=== PATIENT | female | born 1990 | race Two or more races ===

== ENCOUNTER 2019-09-15 08:35 | Inpatient (IN) | payer OTHER ==
--- NOTE | 2019-09-15 09:08 | HP ---
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: Alzheimer's, CVA, Dementia, Migraine, Multiple Sclerosis, Peripheral Neuropathy, Parkinson's, Seizure, Syncope, TIA, Vertigo, Other Cardiovascular: No: AFIB, Aneurysm, Aortic Insufficiency, Aortic Stenosis, CAD, CHF, Deep Vein Thrombosis, HTN, Hyperlipdemia, RI, Mitral Insufficiency, Mitral Stenosis, Murmur, Pulmonary Hypertension, Other Pulmonary: No: Asthma, Bronchitis, Cancer, COPD, O2 Dependent, Pneumonia, Previously Intubated, Pulmonary Embolus, Pulmonary Fibrosis, Sleep Apnea, Other Gastrointestinal: No: Ascites, Cancer, Constipation, Crohn's Disease, Diverticulitis, Diverticulosis, Esophageal Varices, Gastritis, GERD, GI Bleed, Hemorrhoids, Hiatal Hernia, Inflamatory Bowel Disease, Irritable Bowel Disease, Pancreatitis, Peptic Ulcer Disease, Ulcerative Colitis, Other Hepatobiliary: No: Cirrhosis, Cholelithiasis, Cholecystitis, Choledocholithiasis , Hepatitis A, Hepatitis B, Hepatitis C, Other Renal/: No: Renal Failure, Renal Inusuff, BPH, Cancer, Hematuria, Hemodialysis , Neurogenic Bladder, Renal Calculi, UTI, Other Reproductive: No: Ectopic , Endometriosis, Fibroids, PID, Polycystic Ovary Syndrome, Postmenopausal, Other Heme/Onc: No: Anemia, B12 Deficiency, Bleeding Disorder, Cancer, Current Chemotherapy, Current Radiation Therapy, Hemochromatosis, Hypercoaguable State, Myeloproliferative Synd, Sickle Cell Disease, Sickle Cell Trait, Thrombocytopenia, Other Infectious Disease: Yes: Other (hsv +) Psych: No: Addictions, Anxiety, Bipolar, Depression, Panic, Psychosis, Schizophrenia, Other Musculoskeletal: No: Bursitis, Chronic low back pain, Hemiparesis, Hemiplegia, Osteoarthritis, Paraplegia, Other Rheumatology: No: Fibromyalgia, Gout, Lupus, Rheumatoid Arthritis, Sarcoidosis, Vasculitis, Other ENT: No: Allergic Rhinitis, Sinusitis, Other Endocrine: No: Santiago's Disease, [place]'s Disease, Diabetes Insipidus, Diabetes Mellitus, Hyperparathyroidism, Hyperthyroidism, Hypothyroidism, Osteopenia, SIADH, Other Dermatology: No: Basal Cell, Cellulitis, Eczema, Melanoma, Psoriasis, Squamous Cell, Other - Past Surgical History Past Surgical History: No: None, AAA Repair, AICD, Amputation, Appendectomy, Arthrosocopy, AV Fistula/Graft, Bariatric Surgery, Breast Biopsy, Bypass, CABG, Carotid Endarterectomy, Cataract Removal, Cholecystectomy, Colectomy, Colonoscopy, Colostomy, Craniotomy, , Cystectomy, Hernia Repair, Hysterectomy, Ileal Conduit, Ileosotomy, Joint Replacement, Kidney Transplant, Laminectomy, Liver Transplant, Mastectomy, Nephrectomy, Oopherectomy, Orchiectomy, Permanent Pacemaker, Prostatectomy, Splenectomy, Stent, Thoracotomy , TURP, Tonsillectomy, Tubal Ligation, Upper Endoscopy, Valve Replacement, Vasectomy, Vein Stripping/Ligation Hx Myomectomy: No Hx Transabdominal Cerclage: No - Smoking History Smoking history: Never smoked - Alcohol/Substance Use Hx Alcohol Use: Yes (occasion) - Social History History of Recent Travel: No Home Medications - Allergies Allergies/Adverse Reactions: Allergies Allergy/AdvReac Type Severity Reaction Status Date / Time No Known Allergies Allergy Verified 08/22/15 19:55 - Home Medications Home Medications: Ambulatory Orders Acyclovir [Zovirax -] 400 mg PO Q8H #30 tablet 08/22/15 Family Medical History Family History: Unremarkable Review of Systems - Review of Systems Constitutional: reports: No Symptoms Eyes: reports: No Symptoms HENT: reports: No Symptoms Neck: reports: No Symptoms Cardiovascular: reports: No Symptoms Respiratory: reports: No Symptoms Gastrointestinal: reports: No Symptoms Genitourinary: reports: No Symptoms Breasts: reports: No Symptoms Reported Musculoskeletal: reports: No Symptoms Integumentary: reports: No Symptoms Neurological: reports: No Symptoms Endocrine: reports: No Symptoms Hematology/Lymphatic: reports: No Symptoms Psychiatric: reports: No Symptoms Physical Exam - Maternity Vital Signs: as documented Constitutional: Yes: Well Nourished HENT: Yes: Atraumatic Neck: Yes: Supple Cardiovascular: Yes: Regular Rate and Rhythm Breast(s): Yes: Other - Abdominal Exam/OB Number of Fetuses: Single Presentation: Vertex Contractions: No Regularity: Irritability Intensity: Unaware Monitor Mode: External Heart Rate (range): 115 Category: I Accelerations: None Decelerations: None - Vaginal Exam/OB Vaginal Bleediing: No Speculum Exam: Yes (no lessions, no abnormal discharge. Folliculitis noterd) Dilatation (cm): 0.5 Effacement (%): 0 Presentation: Vertex/Position Station: -3 (cervidil in vaginal vault) - Physical Exam Musculoskeletal: Yes: WNL Extremities: Yes: WNL Edema: Yes Edema: LLE: Trace, RLE: Trace Integumentary: Yes: WNL Deep Tendon Reflex Grade: Normal +2 ...Motor Strength: WNL Psychiatric: Yes: Alert, Oriented Imaging - Results Ultrasound: Report Reviewed Assessment/Plan 28 y/o G1 @ 41.1wks presenting for scheduled induction. Risks and complications of induction of labor including but not limited to prolonged process, SD, and increased risk of CD reiterated. All questions answered and informed consent obtained and cervidil placed.
[2019-09-15] MEDS: DEXTROSE 5%-LACTATED RINGERS 1,000 ML IV SCH (09:40)
[2019-09-15 10:17] VITALS: BMI 36.2
[2019-09-15 10:32] LABS: BASO % 0.2 % (0-2.0); EOS % 0.9 % (0-4.5); HEMATOCRIT 33.9 % (32.4-45.2); HEMOGLOBIN 11.7 GM/dL (10.7-15.3); LYMPH % 15.1 % (8-40); MCH 30.8 pg (25.7-33.7); MCHC 34.5 g/dl (32.0-36.0); MEAN CELL VOLUME 89.1 fl (80-96); MEAN PLT VOLUME 8.6 fl (7.5-11.1); MONO % 5.7 % (3.8-10.2); NEUT % 78.1 % (42.8-82.8); PLATELET COUNT 196 K/MM3 (134-434); RDW 13.4 % (11.6-15.6)
[2019-09-15 10:41] LABS: INR 0.94 (0.83-1.09); PROTHROMBIN TIME (PATIENT) 11.1 SEC (9.7-13.0)
[2019-09-15 10:44] LABS: ACTIVATED PTT 29.1 SECONDS (25.2-36.5)
[2019-09-15 10:54] LABS: BLOOD UREA NITROGEN 12.7 mg/dL (7-18); CALCIUM 8.8 mg/dL (8.5-10.1); CREATININE 0.8 mg/dL (0.55-1.3); POTASSIUM 3.3 mmol/L (3.5-5.1)
[2019-09-15] MEDS ORDERED: DINOPROSTONE 10 MG VAGINAL SUPPOSITORY VG ONE ×2 (12:19→21:54)
[2019-09-15 12:37] LABS: COCAINE, UR NEGATIVE ng/ml (CUTOFF=300); METHADONE, UR NEGATIVE ng/ml (CUTOFF=300); OPIATES, URI NEGATIVE ng/ml (CUTOFF=300); PHENCYCLIDINE,URINE NEGATIVE ng/ml (CUTOFF=25); URINE AMPHETAMINES NEGATIVE ng/ml (CUTOFF=500); URINE BARBITURATES NEGATIVE ng/ml (CUTOFF=200); URINE BENZODIAZEPINES NEGATIVE ng/ml (CUTOFF=200)
--- NOTE | 2019-09-15 21:54 | PN ---
Ante-Partal Exam - Subjective Subjective: Patient evaluated for progression of induction and cervidil removal Vital Signs: Vital Signs Temperature 98.1 F 09/15/19 20:00 Pulse Rate 100 H 09/15/19 20:00 Respiratory Rate 18 09/15/19 20:00 Blood Pressure 110/73 09/15/19 20:00 O2 Sat by Pulse Oximetry (%) Bleeding: No Headache: No Visual changes: No Right upper quadrant pain: No - Contractions Contractions: No Regularity: Irritability Intensity: Unaware Monitor Mode: External - Exam during Labor Heart Rate: 110 Variability: Moderate Category: I Monitor Accelerations: Present Monitor Decelerations: None Exam: Vaginal Dilatation (cm): 0.5 Effacement (%): 30 Amniotic Membrane Status: Intact Station: -3 (cervidil removed and new one placed in vaginal vault) Remarks: cervix is posterior - Assessment/Plan Assessment/Plan: 28 y/o G1 @ 41.1 wks, induction of labor due to late term, reassuring FHT and stable maternal condition. Patient is comfortable S/P cervidil # 1 and cervidil # [address] -Continue with induction of labor
[2019-09-16] MEDS: DEXTROSE 5%-LACTATED RINGERS 1,000 ML IV SCH ×2 (03:00→11:21)
[2019-09-16] MEDS ORDERED: OXYTOCIN 30 UNITS in 0.9% NS 30 UNIT/500 ML INFUS.BAG IVPB ONE (09:47)
--- NOTE | 2019-09-16 10:43 | PN ---
Ante-Partal Exam - Subjective Subjective: Patient evaluated for progression of induction. Vital Signs: Vital Signs Temperature 98.1 F 09/16/19 10:00 Pulse Rate 85 09/16/19 10:00 Respiratory Rate 20 09/16/19 10:00 Blood Pressure 126/81 09/16/19 10:00 O2 Sat by Pulse Oximetry (%) Bleeding: No Headache: No Visual changes: No Right upper quadrant pain: No - Contractions Contractions: Yes Regularity: Irregular Intensity: Unaware Monitor Mode: External - Exam during Labor Heart Rate: 120 Variability: Moderate Category: I Monitor Accelerations: Present Monitor Decelerations: None Exam: Vaginal Dilatation (cm): 1 Effacement (%): 40 Amniotic Membrane Status: Intact Presentation: Vertex Station: -3 Remarks: cervidil removed and cervical obrien placed with 60ml of sterile saline - Assessment/Plan Assessment/Plan: 28 y/o G1 @ 41.2wks induction of labor at late term, FHT reassuring, stable maternal conditions, S/P cervidil x 2, Cervical obrien in place. -Initiate pitocin -Re-evaluate accordingly -Continuous monitoring
[2019-09-16] MEDS ORDERED: OXYTOCIN 30 UNITS in 0.9% NS 30 UNIT/500 ML INFUS.BAG IVPB SCH (11:00)
[2019-09-16] MEDS ORDERED: AMPICILLIN SODIUM 2 GM VIAL ONE (16:52)
[2019-09-16] MEDS ORDERED: AMPICILLIN - 2 GM in SODIUM CHLORIDE 100 ML IVPB ONE (17:00)
--- NOTE | 2019-09-16 17:10 | PN ---
Ante-Partal Exam - Subjective Subjective: Patient evaluated progression of induction Vital Signs: Vital Signs Temperature 98.1 F 09/16/19 14:00 Pulse Rate 80 09/16/19 15:45 Respiratory Rate 20 09/16/19 15:45 Blood Pressure 128/74 09/16/19 15:45 O2 Sat by Pulse Oximetry (%) Bleeding: No Headache: No Visual changes: No Right upper quadrant pain: No - Contractions Contractions: Yes Regularity: Regular Intensity: Mild/Mod Monitor Mode: External - Exam during Labor Heart Rate: 110 Variability: Moderate Category: I Monitor Accelerations: Present Monitor Decelerations: None Exam: Vaginal Dilatation (cm): 4 Effacement (%): 60 Amniotic Membrane Status: Ruptured (clear) Presentation: Vertex (asynclitic) Station: -3 Remarks: Cervical balloon removed and AROMed - Assessment/Plan Assessment/Plan: 28 y/o G1 @ 41.2wks, induction of labor at late term, S/P cervidil x 2 and cervical obrien, S/P AROm, on pitocin augmentation, reassuring status -Continue pitocin -Initiate GBS prophylaxis -Re-evaluate according
[2019-09-16] MEDS ORDERED: BUTORPHANOL TARTRATE 1 MG/ML VIAL IVPB ONE (19:58)
--- NOTE | 2019-09-16 20:04 | PN ---
Ante-Partal Exam - Subjective Subjective: Patient evaluated for progression of labor Vital Signs: Vital Signs Temperature 98.3 F 09/16/19 18:00 Pulse Rate 82 09/16/19 19:00 Respiratory Rate 20 09/16/19 19:00 Blood Pressure 128/76 09/16/19 19:00 O2 Sat by Pulse Oximetry (%) Bleeding: No Headache: No Visual changes: No Right upper quadrant pain: No Pain (scale 1-10): 5 - Contractions Contractions: Yes Regularity: Regular Intensity: Mod/Strong Monitor Mode: External - Exam during Labor Heart Rate: 120 Variability: Moderate Category: I Monitor Accelerations: Present Monitor Decelerations: None Exam: Vaginal Dilatation (cm): 4 Effacement (%): 70 Amniotic Membrane Status: Ruptured Station: -2 Remarks: cervix is midline and IUPC placed - Assessment/Plan Assessment/Plan: 28 y/o G1 @ 41.2wks, IOL due to late term, reassuring status, no cervical change despite adequate contractions. Patient counseled regarding management, CD vs IUPC and continuing induction. Risks and complications of each option discussed. Patient desires to proceed with induction and all questions answered. -Continue pitocin augmentation -Re-evaluate accordingly
[2019-09-16] MEDS ORDERED: BUTORPHANOL TARTRATE 1 MG/ML VIAL ONE (20:09)
[2019-09-16] MEDS ORDERED: AMPICILLIN SODIUM 1 GM VIAL ONE (20:17)
[2019-09-16] MEDS: AMPICILLIN - 1 GM in SODIUM CHLORIDE 100 ML IVPB SCH (20:51)
[2019-09-16] MEDS: ELECTROLYTE-148 SOLN 1,000 ML IV SCH (21:00)
[2019-09-16] MEDS ORDERED: OXYTOCIN 20 UNITS in 0.9% NS 20 UNIT/1,000 ML INFUS.BAG IV ONE ×2 (21:21→21:40)
--- NOTE | 2019-09-16 21:26 | PN ---
Ante-Partal Exam - Subjective Subjective: Patient evaluated for progression of labor and recurrent variables Vital Signs: Vital Signs Temperature 98.3 F 09/16/19 20:00 Pulse Rate 67 09/16/19 21:00 Respiratory Rate 20 09/16/19 21:00 Blood Pressure 125/80 09/16/19 21:00 O2 Sat by Pulse Oximetry (%) Bleeding: No Headache: No Visual changes: No Right upper quadrant pain: No - Contractions Contractions: Yes Regularity: Regular Intensity: Moderate Monitor Mode: External - Exam during Labor Heart Rate: 110 Variability: Minimal, Moderate Category: I Monitor Accelerations: Absent Monitor Decelerations: Variable Exam: Vaginal Dilatation (cm): 4.5 Effacement (%): 60 Station: -2 - Assessment/Plan Assessment/Plan: 28 y/o G1 @ 41.2wks, IOL due to late term, failed induction, FHT cat II. Patient counseled regarding CD and all questions answered -stop pitocin -Proceed with CD
[2019-09-16] MEDS ORDERED: morphine SULFATE/PF 0.5 MG/ML (2cc Syringe - QUVA) ONE (21:34)
[2019-09-16] MEDS: OXYTOCIN 20 UNITS in 0.9% NS 20 UNIT/1,000 ML INFUS.BAG IV SCH (22:07)
[2019-09-16] MEDS ORDERED: IBUPROFEN 800 MG/8 ML IJ IVPB PRN (22:30)
--- NOTE | 2019-09-16 22:43 | OP ---
Operative Note - Note: Operative Date: 09/16/19 (Dict # [id number]) Pre-Operative Diagnosis: 28 y/o G1 @ 41.2wks, failed induction, FHT cat II. Operation: PLTCS Findings: see dictation Post-Operative Diagnosis: Same as Pre-op Surgeon: Erick Sam Television Script Writer: Harpreet Lisa Anesthesia: Spinal Estimated Blood Loss (mls): 700 Drains, Volume Out (mls): 100 Fluid Volume Replaced (mls): 1,200 Operative Report Dictated: Yes
[2019-09-16] MEDS ORDERED: ONDANSETRON 4 MG/2 ML VIAL IVPUSH PRN (22:46)
[2019-09-16] MEDS ORDERED: IBUPROFEN 800 MG/8 ML IJ IVPB ONE (23:57)
[2019-09-17] MEDS: OXYTOCIN 20 UNITS in 0.9% NS 20 UNIT/1,000 ML INFUS.BAG IV SCH ×2 (00:26→13:00)
[2019-09-17] MEDS: AMPICILLIN - 1 GM in SODIUM CHLORIDE 100 ML IVPB SCH (04:29)
--- NOTE | 2019-09-17 08:07 | PN ---
Post Progress Note - Subjective Subjective: Patient is doing well, all questions answered and patient declined infant's circumcision Post Day: 1 Type of Delivery: Primary C/S Vital Signs: Vital Signs Temperature 97.7 F 09/17/19 06:27 Pulse Rate 83 09/17/19 06:27 Respiratory Rate 18 09/17/19 06:27 Blood Pressure 91/54 L 09/17/19 06:27 O2 Sat by Pulse Oximetry (%) 100 09/17/19 00:10 Breast Exam: Yes: Other (deferred) Uterus: Yes: Fundus Firm Incision: Yes: Gary intact (dressing removed) Abdomen/GI: Yes: Abdomen soft Lochia, amount: Moderate Extremities: Yes: Calves non-tender Activity: Other (obrien in place) - Labs Labs: CBC WBC 9.0 K/mm3 (4.0-10.0) 09/15/19 10:08 RBC 3.80 M/mm3 (3.60-5.2) 09/15/19 10:08 Hgb 11.7 GM/dL (10.7-15.3) 09/15/19 10:08 Hct 33.9 % (32.4-45.2) 09/15/19 10:08 MCV 89.1 fl (80-96) 09/15/19 10:08 MCH 30.8 pg (25.7-33.7) 09/15/19 10:08 MCHC 34.5 g/dl (32.0-36.0) 09/15/19 10:08 RDW 13.4 % (11.6-15.6) 09/15/19 10:08 Plt Count 196 K/MM3 (134-434) 09/15/19 10:08 MPV 8.6 fl (7.5-11.1) 09/15/19 10:08 Absolute Neuts (auto) 7.0 K/mm3 (1.5-8.0) 09/15/19 10:08 Neutrophils % 78.1 % (42.8-82.8) 09/15/19 10:08 Lymphocytes % 15.1 % (8-40) 09/15/19 10:08 Monocytes % 5.7 % (3.8-10.2) 09/15/19 10:08 Eosinophils % 0.9 % (0-4.5) 09/15/19 10:08 Basophils % 0.2 % (0-2.0) 09/15/19 10:08 Nucleated RBC % 0 % (0-0) 09/15/19 10:08 Assessment/Plan POD # 1 in stable condition and PP/post-op precautions discussed -D/C obrien -encourage ambulation -Anticipate D/C home on POD # 3
[2019-09-17 08:35] LABS: BASO % 0.2 % (0-2.0); HEMATOCRIT 26.9 % (32.4-45.2); HEMOGLOBIN 9.1 GM/dL (10.7-15.3); LYMPH % 10.3 % (8-40); MCH 30.2 pg (25.7-33.7); MCHC 33.9 g/dl (32.0-36.0); MEAN CELL VOLUME 89.1 fl (80-96); MEAN PLT VOLUME 8.8 fl (7.5-11.1); MONO % 6.5 % (3.8-10.2); PLATELET COUNT 157 K/MM3 (134-434); RBC 3.02 M/mm3 (3.60-5.2); RDW 13.5 % (11.6-15.6); WHITE BLOOD COUNT 11.2 K/mm3 (4.0-10.0)
[2019-09-17] MEDS: ACETAMINOPHEN 325 MG TABLET (FP) PO PRN (11:31)
[2019-09-17] MEDS: IBUPROFEN 600 MG TABLET (FP) PO PRN (11:31)
[2019-09-17] MEDS: SIMETHICONE 80 MG TAB.CHEW (FP) PO PRN (11:32)
[2019-09-17] MEDS ORDERED: ELECTROLYTE-148 SOLN 1,000 ML IV SCH (15:15)
--- NOTE | 2019-09-17 15:22 | OP ---
DATE OF OPERATION: 09/16/2019 ATTENDING: Bre Kennedy MD PREOPERATIVE DIAGNOSIS: This is a 28-year-old 1 at 41 and 2 weeks of gestation, prolonged induction, failed induction, heart rate category 2. POSTOPERATIVE DIAGNOSIS: This is a 28-year-old 1 at 41 and 2 weeks of gestation, prolonged induction, failed induction, heart rate category 2. PROCEDURE: Primary low transverse section. SURGEON: Bre Kennedy MD TITLE INVESTIGATOR: FRANCOIS Cardozo ANESTHESIA: Spinal. ESTIMATED BLOOD LOSS: 700. INTRAVENOUS FLUIDS: 1200 mL of crystalloid. URINE OUTPUT: 100 mL of clear urine. COMPLICATIONS: None. FINDINGS: Normal intra-abdominal wall anatomy. Lower uterine segment was not effaced. Large, anterior fibroids, 1 approximately measuring 8 cm and the 2nd one approximately measuring 3 cm and fundal. is in cephalic presentation, not engaged in the pelvis. Clear amniotic fluid. OA, live, viable male infant. DESCRIPTION OF PROCEDURE: The patient was taken to the operating room where anesthesia was found to be adequate. She was then prepped and draped in a normal sterile fashion. Urinary [place] catheter was placed atraumatically. Appropriate time-out took place. Pfannenstiel skin incision was made with a scalpel and carried to the underlying fascia with the Bovie. The fascia was incised in the midline and extended laterally with sharp dissection. The underlying rectus muscles were dissected off bluntly and sharply. The rectus muscles were in the midline, and the peritoneum was entered bluntly. The peritoneal incision was extended laterally. Bladder blade was placed in the lower uterine segment as previously mentioned. Low transverse lower uterine segment transverse incision was made with a scalpel, extended laterally with blunt dissection. Amniotomy revealed clear amniotic fluid. Occult umbilical cord and it was repositioned. was delivered through the surgical incision with mild fundal pressure followed by the rest of the body. Umbilical cord was clamped and cut after delay. Sample for gases and blood obtained. Infant handed off to the NICU staff. Placenta was delivered manually and intact. The uterus was exteriorized through the surgical incision, and the intrauterine cavity was cleared of all clots and debris. The lower uterine segment incision was approximated with 1-0 Polysorb running, locked sutures. Excellent structural reapproximation with 1-layer suture. One additional [id number] stitch of the same suture was required in the midline to control mild oozing. Excellent hemostasis noted. The uterus was internalized to the pelvic cavity, and gutters were cleared of all clots and debris. Inspection of the lower uterine segment incision, bladder dome, and rectus muscle fascial interface was noted to be dry. The fascial incision was approximated with 0 Polysorb running, nonlocked sutures. Excellent structural reapproximation achieved and confirmed by digital palpation by the surgeon. Subcutaneous tissues were copiously irrigated and bleeders neutralized with Bovie cautery. Subcutaneous tissues were reapproximated with 2-0 chromic sutures. Skin incision was reapproximated with surgical ramy. Patient tolerated the procedure well and is going to the recovery room in stable condition. Instrument count was reported as correct x2 by the staff. BRE KENNEDY MD [id number] MTDD
[2019-09-17] MEDS: ELECTROLYTE-148 SOLN 1,000 ML IV SCH (16:25)
[2019-09-17] MEDS ORDERED: BISACODYL 10 MG SUPP.RECT RC PRN (22:30)
[2019-09-18] MEDS: IBUPROFEN 600 MG TABLET (FP) PO PRN ×3 (03:13→22:19)
[2019-09-18] MEDS: SIMETHICONE 80 MG TAB.CHEW (FP) PO PRN ×3 (03:13→22:18)
[2019-09-18] MEDS: ACETAMINOPHEN 325 MG TABLET (FP) PO PRN (03:13)
--- NOTE | 2019-09-18 06:07 | PN ---
Post Progress Note - Subjective Subjective: 28 yo Para 1, status post seen and evaluated. Doing well Post Day: 2 Type of Delivery: Primary C/S Vital Signs: Vital Signs Temperature 98.2 F 09/17/19 21:00 Pulse Rate 104 H 09/17/19 21:00 Respiratory Rate 18 09/17/19 21:00 Blood Pressure 125/68 09/17/19 21:00 O2 Sat by Pulse Oximetry (%) 100 09/17/19 00:10 Breast Exam: Yes: Soft Uterus: Yes: Fundus @ umbilicus Incision: Yes: Dressing dry and intact Abdomen/GI: Yes: Abdomen soft, Tolerating PO Lochia: Yes: Rubra Lochia, amount: Small Extremities: Yes: Calves non-tender Perineum: Yes: Intact Activity: Ambulating - Labs Labs: CBC WBC 11.2 K/mm3 (4.0-10.0) H 09/17/19 07:25 RBC 3.02 M/mm3 (3.60-5.2) L 09/17/19 07:25 Hgb 9.1 GM/dL (10.7-15.3) L 09/17/19 07:25 Hct 26.9 % (32.4-45.2) L D 09/17/19 07:25 MCV 89.1 fl (80-96) 09/17/19 07:25 MCH 30.2 pg (25.7-33.7) 09/17/19 07:25 MCHC 33.9 g/dl (32.0-36.0) 09/17/19 07:25 RDW 13.5 % (11.6-15.6) 09/17/19 07:25 Plt Count 157 K/MM3 (134-434) 09/17/19 07:25 MPV 8.8 fl (7.5-11.1) 09/17/19 07:25 Absolute Neuts (auto) 9.2 K/mm3 (1.5-8.0) H 09/17/19 07:25 Neutrophils % 82.0 % (42.8-82.8) 09/17/19 07:25 Lymphocytes % 10.3 % (8-40) D 09/17/19 07:25 Monocytes % 6.5 % (3.8-10.2) 09/17/19 07:25 Eosinophils % 1.0 % (0-4.5) 09/17/19 07:25 Basophils % 0.2 % (0-2.0) 09/17/19 07:25 Nucleated RBC % 0 % (0-0) 09/17/19 07:25 Problem List - Problems (1) Status post primary low transverse section Problems reviewed: Yes Code(s): Z98.891 - HISTORY OF UTERINE SCAR FROM PREVIOUS SURGERY Assessment/Plan Status post primary Ambulation Analgesia as needed Continue routine post op care
[2019-09-18] MEDS: oxyCODONE HCL 5 MG TABLET PO PRN ×2 (10:55→22:18)
[2019-09-19] MEDS ORDERED: SENNOSIDES/DOCUSATE COMBO (SENNA PLUS) TABLET (UD) PO ONE (05:32)
--- NOTE | 2019-09-19 05:40 | DS ---
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 No: Vomiting ...Rectal Exam: Yes: Deferred Renal/: No: CVA Tenderness - Left, CVA Tenderness - Right ....Post : Yes: Uterus firm, Uterus non-tender, Moderate lochia rubra Breast(s): Yes: WNL (BF , breast soft) Musculoskeletal: Yes: WNL Extremities: Yes: WNL. No: Calf Tenderness Edema: LLE: 1+, RLE: 1+ Integumentary: Yes: Tattoos Wound/Incision: Yes: Clean/Dry, Well Approximated, [place] Intact, Open to air. No: Draining, Reddened, Bleeding, Excoriated Neurological: Yes: WNL, Alert, Oriented ...Motor Strength: WNL Psychiatric: Yes: WNL, Alert, Oriented Labs: CBC, BMP 09/17/19 07:25 09/15/19 10:08 Delivery - Delivery Type of Anesthesia: Spinal Episiotomy/Laceration: None EBL (cc): 700 Delivery, Single - Stages of Labor Date 1st Stage Initiatied: 09/16/19 Time 1st Stage Initiated: 19:00 Date of Delivery: 09/16/19 Time of Delivery: 22:06 Time Placenta Delivered: 22:07 - Condition of Infant Web Press Roll Tender/Carrier Washer Present: No Infant Gender: Male Weight: 8 lb 12 oz Position: OA Total Hours ROM (Hrs/Mins): 5hrs 47min - 1 Minute Total Score: 9 5 Minutes Total Score: 9 - Rudyard Feeding Plan Initial Plan: Exclusive throughout hospitalization Remarks - Remarks Remarks: post c/section #day 3 stab;e post op course uneventful anemia counselled pt instructed to go this week tuesday to the clinic for ramy removal Discharge Summary Problems reviewed: Yes Reason For Visit: INDUCTION OF LABOR Current Active Problems Status post primary low transverse section (Acute) Condition: Stable - Instructions Diet, Activity, Other Instructions: Return to regular diet as tolerated. Return to regular physical activity once cleared by physician. Follow up at health center within a week of discharge. Call health center with any questions or concerns Referrals: Erick Sam MD [Staff Physician] - Disposition: HOME - Home Medications Comprehensive Discharge Medication List: Ambulatory Orders Vitamins (Sjr) - 1 tab PO DAILY 09/15/19 Acetaminophen [Tylenol] 650 mg PO Q6H PRN #30 capsule MDD 5 09/16/19 Ibuprofen 600 mg PO Q6H PRN #30 tablet 09/16/19 Oxycodone HCl 5 mg PO Q6H PRN 3 Days #12 tablet MDD 5 09/16/19 Prescription Drug Monitoring Program (I-STOP) results: I-STOP reviewed and no issues identified
[2019-09-19] MEDS: SIMETHICONE 80 MG TAB.CHEW (FP) PO PRN ×2 (07:40→11:10)
[2019-09-19] MEDS: IBUPROFEN 600 MG TABLET (FP) PO PRN ×2 (07:40→11:10)
[2019-09-19] MEDS: oxyCODONE HCL 5 MG TABLET PO PRN ×2 (07:41→11:11)
[2019-09-19 09:02] LABS: BASO % 0.2 % (0-2.0); EOS % 0.9 % (0-4.5); HEMATOCRIT 23.7 % (32.4-45.2); HEMOGLOBIN 8.1 GM/dL (10.7-15.3); LYMPH % 24.8 % (8-40); MCH 30.8 pg (25.7-33.7); MEAN CELL VOLUME 90.5 fl (80-96); MEAN PLT VOLUME 8.2 fl (7.5-11.1); MONO % 7.3 % (3.8-10.2); NEUT % 66.8 % (42.8-82.8); PLATELET COUNT 150 K/MM3 (134-434); RBC 2.62 M/mm3 (3.60-5.2); RDW 13.7 % (11.6-15.6); WHITE BLOOD COUNT 8.2 K/mm3 (4.0-10.0)
[2019-09-19 09:17] VITALS: BP 133/86; PULSE 92; TEMP 98
--- NOTE | 2019-09-19 19:34 | PATH ---
Surgical Pathology Report Patient Name: JANNY JOHNSON Med. Rec. #: [id number] /Age/Gender: 1990 (Age: 28) / F Account: [id number] Location: [facility] OBS/[employer] OFFICER Taken: 09/15/2019 Received: 09/17/2019 Reported: 09/19/2019 Physicians: Erick Sam MD Specimen(s) Received PLACENTA Clinical History 41.2 weeks, failed induction Final Diagnosis PLACENTA: THIRD TRIMESTER PLACENTA WITH FOCAL INCREASED PIGMENTED MACROPHAGES IN THE CHORIOAMNIONIC MEMBRANES, CONSISTENT WITH MECONIUM STAINING, MILD. TRIVASCULAR CORD. Electronically Signed Zhen Braga M.D. Gross Description The specimen is received fresh labeled placenta and is a 612gram, 20 x18 x 3.1cm. placenta with attached membranes and umbilical cord. The attached membranes are glistening, translucent, and insert marginally. The umbilical cord measures 15 cm. in length and averages 1.5 cm. in diameter. The cord inserts eccentrically, 3 centimeter to the nearest margin. No true knots or strictures are identified. Cut surface of the umbilical cord reveals 3 vessels. Sectioning reveals red-brown, spongy parenchyma. No lesions are identified. Robot Programmer sections are submitted in three cassettes as follows: 1- membrane rolls and umbilical cord; 2-3- full thickness sections of placenta KWS/09/18/2019 sulki/09/18/2019
== END 2019-09-19 17:00 | disposition home or self-care (01) | DRG 540 ==
LOC: JLDR 08:35 → J3W 09-17 01:03
PROVIDERS: ADMIT Student in an Organized Health Care Education/Training Program; ATTEND Student in an Organized Health Care Education/Training Program
PROC: 10D00Z1 Extraction of Products of Conception, Low, Open Approach (ICD-10-PCS; principal; 2019-09-16)
DX: O48.0 Post-term pregnancy (principal); O76 Abnormality in fetal heart rate and rhythm complicating labor and delivery; O61.0 Failed medical induction of labor; O34.13 Maternal care for benign tumor of corpus uteri, third trimester; Z3A.41 41 weeks gestation of pregnancy; Z37.0 Single live birth; D25.9 Leiomyoma of uterus, unspecified
CPT/HCPCS: 36415; 80048; 80307; 85025; 85610; 85730; 86593; 86850; 86900; 86901; 88307-TC

== ENCOUNTER 2019-09-26 16:34 | Emergency (ER) | payer OTHER ==
[2019-09-26 17:10] VITALS: BP 130/70; PULSE 77; TEMP 97.9; BMI 31.9
[2019-09-26] MEDS ORDERED: ACETAMINOPHEN 1000 MG/100 ML VIAL (NON FORMULARY) IVPB ONE (17:10)
[2019-09-26] MEDS ORDERED: SODIUM CHLORIDE 1,000 ML IV STA (17:10)
--- NOTE | 2019-09-26 17:10 | PDOC ---
Rapid Medical Evaluation Chief Complaint: Pain, Acute Time Seen by Provider: 09/26/19 17:07 Medical Evaluation: Allergies Allergy/AdvReac Type Severity Reaction Status Date / Time No Known Allergies Allergy Verified 08/22/15 19:55 09/26/19 17:07 Pt with PMH of appendectomy presents for evaluation of RLQ pain starting 3 days ago. Pt had on the . Taking oxycodone with little relief of symptoms. PROJECT ASSOCIATE: Dr. Leary Exam: tearful, TTP of the RLQ Orders: Labs, urine, IVF Pt to proceed to the ER for further evaluation Discharge Disposition - Diagnosis Abdominal pain Qualifiers: Abdominal location: right lower quadrant Qualified Code(s): R10.31 - Right lower quadrant pain - Referrals - Patient Instructions - Post Discharge Activity
[2019-09-26 18:04] LABS: BASO % 0.3 % (0-2.0); EOS % 0.1 % (0-4.5); HEMATOCRIT 31.6 % (32.4-45.2); HEMOGLOBIN 10.8 GM/dL (10.7-15.3); LYMPH % 16.3 % (8-40); MCH 30.6 pg (25.7-33.7); MCHC 34.1 g/dl (32.0-36.0); MEAN CELL VOLUME 89.6 fl (80-96); MEAN PLT VOLUME 7.5 fl (7.5-11.1); MONO % 4.4 % (3.8-10.2); NEUT % 78.9 % (42.8-82.8); PLATELET COUNT 350 K/MM3 (134-434); RBC 3.53 M/mm3 (3.60-5.2); RDW 13.8 % (11.6-15.6); WHITE BLOOD COUNT 10.3 K/mm3 (4.0-10.0)
[2019-09-26 18:14] LABS: INR 1.05 (0.83-1.09); PROTHROMBIN TIME (PATIENT) 12.4 SEC (9.7-13.0)
[2019-09-26 18:20] LABS: ALBUMIN 3.5 g/dl (3.4-5.0); BILIRUBIN,TOTAL 0.4 mg/dL (0.2-1); BLOOD UREA NITROGEN 7.8 mg/dL (7-18); CREATININE 0.8 mg/dL (0.55-1.3); TOT PROT 7.6 g/dl (6.4-8.2)
[2019-09-26 18:25] LABS: EPI CELLS 6.1 /HPF (0-5/HPF); HYALINE CASTS 3 /lpf (0-8); PH,URINE 6.5 (5.0-8.0); URINE APPEARANCE CLEAR; URINE BACTERIA 218.2 /hpf (NEGATIVE); URINE BILIRUBIN NEGATIVE (NEGATIVE); URINE COLOR YELLOW; URINE GLUCOSE (UA) NEGATIVE (NEGATIVE); URINE KETONE TRACE (NEGATIVE); URINE LEUK ESTERASE TRACE (NEGATIVE); URINE NITRITE NEGATIVE (NEGATIVE); URINE PROTEIN NEGATIVE (NEGATIVE); URINE RBC 7 /hpf (0-4); URINE UROBILINOGEN 0.2 mg/dL (0.2-1.0); URINE WBC 12 /hpf (0-5)
[2019-09-26] MEDS ORDERED: ACETAMINOPHEN INJECTION 100 ML IVPB ONE (18:33)
--- NOTE | 2019-09-26 19:12 | PDOC ---
History of Present Illness - General Chief Complaint: Pain, Acute Stated Complaint: SENT BY DR Odonnell Seen by Provider: 09/26/19 17:07 History Source: Patient Exam Limitations: No Limitations - History of Present Illness Travel History: No Initial Comments: 09/26/19 19:06 HISTORY OF PRESENT ILLNESS: 28-year-old G1, P1 status post 09/16 with remote appendectomy 2005 who presents emergency department for evaluation of right lower quadrant pain over the past 3 days. Patient states she was seen and evaluated by her [employer] who has been given her Tylenol, Motrin and oxycodone with minimal relief of pain. She reports the pain is a sharp sensation to the right lower quadrant which is lateral to the scar. She denies any discharge or drainage from site. She reports minimal vaginal bleeding which is slowly improving since delivery. She denies dysuria, hematuria, nausea, vomiting, diarrhea, rectal bleeding. Patient was seen and evaluated by her [employer]HOU[employer] MECH[employer]IC today who referred patient to the emergency department for imaging. No recent travel or sick contacts. PAST MEDICAL HISTORY: Denies past medical history SURGICAL HISTORY: 09/16/2019, appendectomy 2005 ALLERGIES: No known drug allergies REVIEW OF SYSTEMS General/Constitutional: Denies fever or chills. Denies weakness, weight change. HEENT: Denies change in vision. Denies ear pain or discharge. Denies sore throat. Cardiovascular: Denies chest pain or shortness of breath. Respiratory: Denies cough, wheezing, or hemoptysis. Gastrointestinal: See HPI Genitourinary: Denies dysuria, frequency, or change in urination. Musculoskeletal: Denies joint or muscle swelling or pain. Denies neck or back pain. Skin and breasts: Denies rash or easy bruising. Neurologic: Denies headache, vertigo, loss of consciousness, or loss of sensation. Psychiatric: Denies depression or anxiety. Endocrine: Denies increased thirst. Denies abnormal weight change. Hematologic/Lymphatic: Denies anemia, easy bleeding, or history of blood clots. Allergic/Immunologic: Denies hives or skin allergy. Denies latex allergy. PHYSICAL EXAM General Appearance: Well-appearing, appropriately dressed. No apparent distress , no intoxication. Respiratory/Chest: Lungs CTAB. No shortness of breath, chest tenderness, respiratory distress, accessory muscle use. No crackles, rales, rhonchi, stridor , wheezing, dullness Cardiovascular: RRR. S1, S2. No JVD, murmur, bradycardia, tachycardia. Vascular Pulses: Dorsalis-Pedis (R): 2+, Dorsalis-Pedis (L): 2+ Gastrointestinal/Abdominal: Normal bowel sounds. Abdomen soft, non-distended. No rebound tenderness. No organomegaly, hepatomegaly, splenomegaly. Approximate 3 cm circular palpable mass present to the right lower quadrant lateral to surgical incision. Mass is not pulsatile. Increased tenderness with palpation. Lymphatic: No adenopathy, tenderness. Integumentary: Appropriate color, dry, warm. No cyanosis, erythema, jaundice or rash. Surgical incision present to the suprapubic area which is well approximated and well-healed. No erythema, discharge or drainage is present. No warmth to touch. Past History - Past Medical History Allergies/Adverse Reactions: Allergies Allergy/AdvReac Type Severity Reaction Status Date / Time No Known Allergies Allergy Verified 09/26/19 17:07 Home Medications: Ambulatory Orders Vitamins (Sjr) - 1 tab PO DAILY 09/15/19 Acetaminophen [Tylenol] 650 mg PO Q6H PRN #30 capsule [facility] 5 09/16/19 Ibuprofen 600 mg PO Q6H PRN #30 tablet 09/16/19 Oxycodone HCl 5 mg PO Q6H PRN 3 Days #10 tablet [facility] 5 09/21/19 Cephalexin Monohydrate [Keflex -] 500 mg PO BID #14 capsule 09/26/19 Asthma: Yes Cancer: No Cardiac Disorders: No COPD: No Diabetes: No HTN: No Seizures: No Thyroid Disease: No - Psycho Social/Smoking Cessation Hx Smoking History: Never smoked Hx Alcohol Use: No Drug/Substance Use Hx: No Substance Use Type: None Hx Substance Use Treatment: No *Physical Exam - Vital Signs Last Vital Signs Temp Pulse Resp BP Pulse Ox 97.9 F 77 16 130/70 99 09/26/19 17:07 09/26/19 17:07 09/26/19 17:07 09/26/19 17:07 09/26/19 17:07 ED Treatment Course - LABORATORY CBC & Chemistry Diagram: 09/26/19 17:26 09/26/19 17:26 - ADDITIONAL ORDERS Additional order review: Laboratory Results 09/26/19 09/26/1920 17:26 17:26 17:26 PT with INR 12.40 INR 1.05 Sodium 138 Potassium 4.0 Chloride 105 Carbon Dioxide 27 Anion Gap 7 L BUN 7.8 Creatinine 0.8 Est GFR (CKD-EPI)AfAm 117.93 Est GFR (CKD-EPI)NonAf 101.75 Random Glucose 80 Calcium 9.0 Total Bilirubin 0.4 AST 37 ALT 35 Alkaline Phosphatase 142 H Total Protein 7.6 Albumin 3.5 Lipase 108 Urine Color Yellow Urine Appearance Clear Urine pH 6.5 Ur Specific [place] 1.011 Urine Protein Negative Urine Glucose (UA) Negative Urine Ketones Trace H Urine Blood 3+ H Urine Nitrite Negative Urine Bilirubin Negative Urine Urobilinogen 0.2 Ur Leukocyte Esterase Trace Urine WBC (Auto) 12 Urine RBC (Auto) 7 Urine Casts (Auto) 3 U Epithel Cells (Auto) 6.1 Urine Bacteria (Auto) 218.2 09/26/19 17:26 RBC 3.53 L MCV 89.6 MCHC 34.1 RDW 13.8 MPV 7.5 Neutrophils % 78.9 Lymphocytes % 16.3 D Monocytes % 4.4 Eosinophils % 0.1 D Basophils % 0.3 - RADIOLOGY Radiology Studies Ordered: Category Date Time Status ABDOMEN & PELVIS CT WITH CONTR [CT] Stat CT Scan 09/26/19 19:05 Ordered - Medications Given in the ED: ED Medications Discontinued Medications Generic Name Dose Route Start Last Admin Trade Name Freq PRN Reason Stop Dose Admin Acetaminophen 1,000 mg 09/26/19 17:10 09/26/19 18:49 Ofirmev Injection - IVPB 09/26/19 17:11 1,000 mg ONCE ONE Administration Sodium Chloride 1,000 mls @ 1,000 mls/hr 09/26/19 17:10 09/26/19 18:49 Normal Saline - IV 09/26/19 18:09 1,000 mls/hr ASDIR STA Administration Medical Decision Making - Medical Decision Making 09/26/19 19:11 A/P: 28-year-old woman with right lower quadrant pain for 3 days Firm palpable mass approximately 3 cm in diameter present to the right lower quadrant lateral to incision. Masses not pulsatile Increased tenderness with palpation of the mass remainder of abdominal exam is unremarkable. Differential diagnosis includes but is not limited to-hernia, encapsulated hematoma, intra-abdominal abscess status post , metastatic disease Less likely abscess as there is no erythema or fevers. Orders per [facility] CT of the abdomen and pelvis with IV contrast Reassess 09/26/19 22:18 CAT scan is read by Dr. Xie: Large uterus with no evidence of pelvic fluid collections or acute pathology within the abdomen or pelvis per there is an anterior uterine mass consistent with a leiomyoma. WBC 10.3 without shift present. Chemistries notable for mildly elevated alkaline phosphatase at 142. Urinalysis with trace ketones, 3+ blood, trace leukoesterase, 12 WBCs on high- power field. No evidence of contamination. Blood likely due to state. Given trace leukoesterase with 12 WBCs will treat with Keflex 500 mg twice daily for the next 7 days. Discharge home I discussed the physical exam findings, ancillary test results and final diagnoses with the patient. I answered all of the patient's questions. The patient was satisfied with the care received and felt comfortable with the discharge plan and treatment plan. The patient will call their primary care physician within 24 hours to arrange follow-up and will return to the Emergency Department with any new, persistent or worsening symptoms. Discharge - Discharge Information Problems reviewed: Yes Clinical Impression/Diagnosis: Cystitis Uterine leiomyoma Qualifiers: Uterine leiomyoma location: unspecified location Qualified Code(s): D25.9 - Leiomyoma of uterus, unspecified Condition: Stable Disposition: HOME - Admission No - Additional Discharge Information Prescriptions: Cephalexin Monohydrate [Keflex -] 500 mg PO BID #14 capsule - Follow up/Referral Referrals: Erick Sam MD [Staff Physician] - - Patient Discharge Instructions Additional Instructions: Continue all previously prescribed medications for pain. Take Keflex 500 mg twice a day for the next 7 days. Your CAT scan today showed enlarged uterus with uterine fibroid. It is important that you follow-up with your [employer]IC at your scheduled appointment on 09/28. Return to the emergency department for any new or worsening symptoms. - Post Discharge Activity
== END 2019-09-26 22:57 | disposition home or self-care (01) ==
LOC: JER 16:34
PROC: 3E033NZ Introduction of Analgesics, Hypnotics, Sedatives into Peripheral Vein, Percutaneous Approach (ICD-10-PCS; principal; 2019-09-26)
DX: O90.89 Other complications of the puerperium, not elsewhere classified (principal); O86.22 Infection of bladder following delivery; D25.9 Leiomyoma of uterus, unspecified
CPT/HCPCS: 36415; 74177-TC; 80053; 81003; 83690; 85025; 85610; 87086; 99284-25; J0131; J7030

== ENCOUNTER 2020-03-10 14:32 | Emergency (ER) | payer OTHER ==
[2020-03-10 14:39] VITALS: BP 113/79; PULSE 94; TEMP 98.7; BMI 31.6
--- NOTE | 2020-03-10 14:51 | PDOC ---
Rapid Medical Evaluation Chief Complaint: Edema Medical Evaluation: Allergies Allergy/AdvReac Type Severity Reaction Status Date / Time No Known Allergies Allergy Verified 03/10/20 14:39 Vital Signs Temp Pulse Resp BP Pulse Ox 98.7 F 94 H 18 113/79 98 03/10/20 14:34 03/10/20 14:34 03/10/20 14:34 03/10/20 14:34 03/10/20 14:34 03/10/20 14:44 29 yo h/o asthma presents with L sided facial numbness since 3 am today with mild LORENZO and slight blurry vision. denies weakness, slurred speech, n/v/f/c/d, rash, cp, sob. patient has 5 month old at home, not breast feeding. VSS L sided facial droop decreased sensation to left side of face ambulatory A/P: L sided facial numbness labs head CT
[2020-03-10 15:13] LABS: BASO % 0.7 % (0-2.0); EOS % 1.9 % (0-4.5); HEMATOCRIT 39.8 % (32.4-45.2); HEMOGLOBIN 12.9 GM/dL (10.7-15.3); LYMPH % 30.7 % (8-40); MCHC 32.4 g/dl (32.0-36.0); MEAN CELL VOLUME 83.3 fl (80-96); MEAN PLT VOLUME 8.2 fl (7.5-11.1); MONO % 7.9 % (3.8-10.2); NEUT % 58.8 % (42.8-82.8); PLATELET COUNT 261 K/MM3 (134-434); RBC 4.78 M/mm3 (3.60-5.2); RDW 15.8 % (11.6-15.6); WHITE BLOOD COUNT 8.6 K/mm3 (4.0-10.0)
[2020-03-10 15:38] LABS: ALBUMIN 3.9 g/dl (3.4-5.0); BILIRUBIN,TOTAL 0.7 mg/dL (0.2-1); BLOOD UREA NITROGEN 9.5 mg/dL (7-18); CREATININE 0.8 mg/dL (0.55-1.3); POTASSIUM 3.8 mmol/L (3.5-5.1)
--- NOTE | 2020-03-10 16:05 | PDOC ---
History of Present Illness - General Chief Complaint: Edema Stated Complaint: SWOLLEN FACE Time Seen by Provider: 03/10/20 15:27 - History of Present Illness Initial Comments: 03/10/20 16:02 29-year-old female without comorbidities presents for right-sided facial paralysis x1 day. No headache fever chills nausea vomiting upper or lower extremity weakness. Past History - Medical History Allergies/Adverse Reactions: Allergies Allergy/AdvReac Type Severity Reaction Status Date / Time No Known Allergies Allergy Verified 03/10/20 14:39 Home Medications: Ambulatory Orders Dextran 70/Hypromellose [Artificial Tears Eye Drops] 15 ml OD ASDIR #1 drops 03/10/20 Mineral Oil/Petrolatum,White [Akwa Tears Ointment] 3.5 gm OD ACDIN #1 oint...g. 03/10/20 Prednisone 10 mg PO ASDIR #66 tab.ds.pk 03/10/20 Valacyclovir HCl [Valtrex -] 1,000 mg PO TID 7 Days #21 tablet 03/10/20 Asthma: Yes Cancer: No Cardiac Disorders: No COPD: No Diabetes: No HTN: No Seizures: No Thyroid Disease: No - Surgical History Appendectomy: Yes - Immunization History Immunization Up to Date: Yes - Psycho-Social/Smoking History Smoking History: Never smoked Have you smoked in the past 12 months: No Information on smoking cessation initiated: No - Substance Abuse Hx (Audit-C & DAST Scrn) How often the patient has a drink containing alcohol: Never Score: In Men: 4 or > Positive; In Women: 3 or > Positive: 0 Screen Result (Pos requires Nsg. Audit-10AR): Negative In the last yr the pt used illegal drug/Rx for NonMed reason: No Score: Yes response is considered Positive: 0 Screen Result (Positive result requires Nsg. DAST-10): Negative Review of Systems - Review of Systems Constitutional: No: Chills, Diaphoresis, Fever, Night Sweats Neurological: Yes: Paresthesia, Weakness. No: Headache, Numbness, Pre-Existing Deficit, Seizure, Tingling, Tremors, Unsteady Gait, Ataxia, Dizziness *Physical Exam - Vital Signs Last Vital Signs Temp Pulse Resp BP Pulse Ox 98.7 F 94 H 18 113/79 98 03/10/20 14:34 03/10/20 14:34 03/10/20 14:34 03/10/20 14:34 03/10/20 14:34 - Physical Exam 03/10/20 16:02 GENERAL: The patient is awake, alert, and fully oriented, in no acute distress. HEAD: Normal with no signs of trauma. EYES: sclera anicteric, conjunctiva clear. ENT: Ears normal tympanic membranes normal oropharynx clear uvula midline NECK: Normal range of motion LUNGS: Breath sounds equal, clear to auscultation bilaterally. No wheezes, and no crackles. HEART: S1 and S2 without murmur, rub or gallop. ABDOMEN: Soft, nontender, normoactive bowel sounds. No guarding, no rebound. No masses. EXTREMITIES: Normal range of motion, no edema. No clubbing or cyanosis. No cords, erythema, or tenderness. NEUROLOGICAL: Asymmetric smile right-sided facial droop inability to raise right eyebrow. No tongue deviation no drift upper extremity no gross sensorimotor deficits 5 out of 5 strength. PSYCH: Normal mood, normal affect. SKIN: Warm, Dry, normal turgor, no rashes or lesions noted. ED Treatment Course - LABORATORY CBC & Chemistry Diagram: 03/10/20 14:47 03/10/20 14:47 - ADDITIONAL ORDERS Additional order review: Laboratory Results 03/10/20 03/10/20 15:31 14:47 Sodium 140 Potassium 3.8 Chloride 108 H Carbon Dioxide 24 Anion Gap 8 BUN 9.5 Creatinine 0.8 Est GFR (CKD-EPI)AfAm 117.10 Est GFR (CKD-EPI)NonAf 101.04 Random Glucose 79 Calcium 9.0 Total Bilirubin 0.7 AST 27 ALT 31 Alkaline Phosphatase 77 Total Protein 8.0 Albumin 3.9 Serum , Qual Negative 03/10/20 14:47 RBC 4.78 MCV 83.3 MCHC 32.4 RDW 15.8 H D MPV 8.2 Neutrophils % 58.8 D Lymphocytes % 30.7 D Monocytes % 7.9 Eosinophils % 1.9 D Basophils % 0.7 Medical Decision Making - Medical Decision Making 03/10/20 16:03 Renee's palsy will treat with antiviral viral's and steroids artificial tears follow-up with neurology I have reviewed the pathophysiology with the patient. They are in agreement with the treatment plan all questions were answered to their satisfaction. Understanding for follow-up without fail was also conveyed to the patient. Again they are in agreement. Discharge - Discharge Information Problems reviewed: Yes Clinical Impression/Diagnosis: Renee palsy Condition: Stable Disposition: HOME - Admission No - Additional Discharge Information Prescriptions: Dextran 70/Hypromellose [Artificial Tears Eye Drops] 15 ml OD ASDIR #1 drops Mineral Oil/Petrolatum,White [Akwa Tears Ointment] 3.5 gm OD ACDIN #1 oint...g. Prednisone 10 mg PO ASDIR #66 tab.ds.pk Valacyclovir HCl [Valtrex -] 1,000 mg PO TID 7 Days #21 tablet - Follow up/Referral Referrals: Cony Juan MD [Primary Care Provider] - Ralph Jack MD [Staff Physician] - - Patient Discharge Instructions Patient Printed Discharge Instructions: DI for Renee's Palsy Additional Instructions: Please take the medication as directed and return to the emergency room should symptoms worsen and without fail follow-up with neurology in 1 to 2 days for further evaluation and treatment options. - Post Discharge Activity
== END 2020-03-10 17:06 | disposition home or self-care (01) ==
LOC: JER 14:32
DX: G51.0 Bell's palsy (principal)
CPT/HCPCS: 36415; 70450-TC; 80053; 84703; 85025; 99284-25

== ENCOUNTER 2024-10-31 19:15 | Emergency (ER) | payer OTHER ==
[2024-10-31 19:46] VITALS: BP 125/89; PULSE 85; RESP 16; TEMP 99.7; BMI 37.2
[2024-10-31] MEDS ORDERED: LIDOCAINE HCL 2% JELLY 11 ML TP ONE (22:19)
[2024-10-31] MEDS: LIDOCAINE HCL 2% JELLY (30 ML/TUBE) TP ONE (22:23)
[2024-10-31] MEDS: IBUPROFEN 400 MG TABLET (FP) PO ONE (22:24)
[2024-11-01 00:55] LABS: HIV INTERPRETATION NEGATIVE (NEGATIVE)
== END 2024-11-01 00:36 | disposition home or self-care (01) ==
LOC: JER 19:15
DX: K64.4 Residual hemorrhoidal skin tags (principal); R19.7 Diarrhea, unspecified; R11.10 Vomiting, unspecified
CPT/HCPCS: 36415; 86803; 87389; 99283-25